=== PATIENT | male | born 1940 | race Caucasian/White ===

== ENCOUNTER 2020-10-31 09:42 | Day surgery (SDC) | payer MEDICARE ==
[~2020-10-31] VITALS: Ht 180.3 cm; Wt 87.5 kg
[2020-10-31] MEDS ORDERED: SODIUM CHLORIDE 0.9% 1000ML 1,000 ML IV ONE (10:22)
[2020-10-31 10:49] VITALS: BP 120/71
[2020-10-31] MEDS ORDERED: ACET-66 PO (11:07)
[2020-10-31] MEDS ORDERED: FURO20TA4 PO (11:07)
[2020-10-31] MEDS ORDERED: FINA5TAB41 PO (11:07)
[2020-10-31] MEDS ORDERED: LISI10TA24 PO (11:07)
[2020-10-31] MEDS ORDERED: INSU300I SQ (11:07)
[2020-10-31] MEDS ORDERED: TAMS-1 PO (11:07)
[2020-10-31] MEDS ORDERED: PROPOFOL 10 MG/ML 20ML VIAL IV ONE (11:58)
== END 2020-10-31 13:45 | disposition home or self-care (01) ==
LOC: ENDO 09:42 → DAH 09:42 → ENDO 13:45
PROVIDERS: ATTEND Internal Medicine
DX: R93.3 Abnormal findings on diagnostic imaging of other parts of digestive tract (principal); K31.89 Other diseases of stomach and duodenum; K86.89 Other specified diseases of pancreas; C78.7 Secondary malignant neoplasm of liver and intrahepatic bile duct; E11.9 Type 2 diabetes mellitus without complications; Z90.49 Acquired absence of other specified parts of digestive tract; Z79.899 Other long term (current) drug therapy
CPT/HCPCS: 43238; 82948; A4215 ×3; A4221; A4222; A4223; A4606; A4620; A4663; J2704; J7030